=== PATIENT | male | born 1985 | race Caucasian/White ===

== ENCOUNTER 2017-08-25 10:20 | Emergency (ER) | payer OTHER ==
[~2017-08-25] VITALS: Wt 74.8 kg
[2017-08-25] MEDS ORDERED: NEURONTIN300 MG PO (10:30)
[2017-08-25] MEDS ORDERED: BUSPIRONE HCL15 MG PO (10:30)
[2017-08-25] MEDS ORDERED: DULOXETINE HCL60 MG PO (10:31)
[2017-08-25] MEDS ORDERED: ARIPIPRAZOLE10 MG PO (10:31)
[2017-08-25] MEDS ORDERED: DOXEPIN HCL25 MG PO (10:31)
[2017-08-25] MEDS ORDERED: SEPTDS PO (12:16)
== END 2017-08-25 12:21 | disposition home or self-care (01) ==
LOC: ED 10:20
DX: S80.812A Abrasion, left lower leg, initial encounter (principal); Z88.0 Allergy status to penicillin; Z79.899 Other long term (current) drug therapy; W20.8XXA Other cause of strike by thrown, projected or falling object, initial encounter; Y93.89 Activity, other specified; Y92.89 Other specified places as the place of occurrence of the external cause; Y99.8 Other external cause status

== ENCOUNTER 2018-02-28 15:27 | Emergency (ER) | payer OTHER ==
[~2018-02-28 15:27] MED LIST: ARIPIPRAZOLE10 MG PO; BUSPIRONE HCL15 MG PO; DOXEPIN HCL25 MG PO; DULOXETINE HCL60 MG PO; NEURONTIN300 MG PO; SEPTDS PO
[2018-02-28 16:05] LABS: BASO # 0.1 10*3/uL (0.0-0.1); BASO % 1.1 % (0.0-1.0); EOS # 0.2 10*3/uL (0.0-0.4); EOS % 2.3 % (1.0-4.0); HEMATOCRIT 46.3 % (42.0-52.0); HEMOGLOBIN 15.6 g/dl (14.0-18.0); LYMPH # 1.7 10*3/uL (1.3-4.4); LYMPH % 19.3 % (27.0-41.0); MEAN CELL VOLUME 92.6 fl (80.0-94.0); MEAN CORPUSCULAR HGB 31.2 pg (27.0-31.0); MEAN CORPUSCULAR HGB CONC 33.7 g/dl (33.0-37.0); MONO # 0.5 10*3/uL (0.1-1.0); NEUT # 6.1 10*3/uL (2.3-7.9); NEUT % 71.1 % (47.0-73.0); PLATELET COUNT AUTOMATED 204 10*3/uL (130-400); RED CELL DISTRI WIDTH 12.4 % (0-14.5); WHITE BLOOD COUNT 8.6 10*3/uL (4.8-10.8)
[2018-02-28 16:20] LABS: ALBUMIN 4.9 gm/dl (3.1-4.5); ALKALINE PHOSPHATASE 96 U/L (45-117); BUN 15 mg/dl (7-24); CHLORIDE 106 mmol/L (98-107); CREATININE 0.93 mg/dL (0.70-1.30); SGOT/AST 113 IU/L (3-35); SGPT/ALT 363 U/L (12-78); SODIUM 137 mmol/L (136-145); TOTAL PROTEIN 8.1 gm/dL (6.4-8.2)
[2018-02-28 16:24] LABS: BILIRUBIN NEGATIVE (NEGATIVE); BLOOD 1+ (NEGATIVE); CLARITY CLEAR (CLEAR); COLOR YELLOW (YELLOW); GLUCOSE NEGATIVE (NEGATIVE); KETONE NEGATIVE (NEGATIVE); LEUKO ESTERASE NEGATIVE (NEGATIVE); NITRITE NEGATIVE (NEGATIVE); UROBILINOGEN 0.2 E.U./dl (0.2-1.0)
[2018-02-28 16:37] LABS: BACTERIA 1+; EPITHELIAL CELLS 0-2; WBC 0-2 wbc/hpf (0-5)
[2018-02-28] MEDS ORDERED: ZOFRAN4 MG PO (16:41)
[2018-02-28] MEDS ORDERED: CLINDAMYCIN HC300 MG PO (16:41)
[2018-04-26] MEDS ORDERED: ANUSOL-HC25 MG R (03:29)
[2018-04-26] MEDS ORDERED: MIRALAX119 GM PO (03:29)
== END 2018-02-28 16:48 | disposition home or self-care (01) ==
LOC: ED 15:27
PROVIDERS: Nurse Practitioner Family
DX: K02.9 Dental caries, unspecified (principal); A08.4 Viral intestinal infection, unspecified; Z88.0 Allergy status to penicillin; Z79.2 Long term (current) use of antibiotics; Z79.899 Other long term (current) drug therapy

== ENCOUNTER 2018-09-01 14:08 | Emergency (ER) | payer OTHER ==
[~2018-09-01] VITALS: Ht 185.4 cm; Wt 83.9 kg
[~2018-09-01 14:08] MED LIST changes: +ANUSOL-HC25 MG R; +CLINDAMYCIN HC300 MG PO; +MIRALAX119 GM PO; +ZOFRAN4 MG PO
[2018-09-01] MEDS ORDERED: PREDNISONE50 MG PO (14:28)
== END 2018-09-01 14:41 | disposition home or self-care (01) ==
LOC: ED 14:08
DX: L23.7 Allergic contact dermatitis due to plants, except food (principal); Z88.0 Allergy status to penicillin